=== PATIENT | male | born 1950 | race Caucasian/White ===

== ENCOUNTER 2023-12-01 15:41 | Emergency (ER) | payer MEDICARE ==
[~2023-12-01] VITALS: Ht 177.8 cm; Wt 113.4 kg
[2023-12-01 15:51] VITALS: BP 159/97; PULSE 60; RESP 17; O2SAT 97
[2023-12-01] MEDS ORDERED: KETOROLAC 30MG VIAL (30MG/ML) IM SCH (17:30)
[2023-12-01] MEDS ORDERED: NAPR-1180 PO (17:34)
[2023-12-01] MEDS ORDERED: CYCL-309 PO (17:34)
== END 2023-12-01 17:42 | disposition home or self-care (01) ==
LOC: EDH 15:41
DX: G89.29 Other chronic pain (principal); M25.511 Pain in right shoulder; I10 Essential (primary) hypertension